=== PATIENT | female | born 1950 | race Caucasian/White ===

== ENCOUNTER 2018-07-04 13:08 | Emergency (ER) | payer MEDICARE ==
[2018-07-04 13:21] VITALS: BP 219/85
--- NOTE | 2018-07-04 13:43 | UC ---
Respiratory Complaint HPI - HPI Summary HPI Summary: 67-year-old female with history of asthma presents with onset of nonproductive cough around 10 AM this morning. Associated with some general malaise and "chest burning" with cough. Reports one week ago she choked on some food which was then followed by a lot of coughing and she is concerned that this may have caused an infection in her lungs. Denies fever, chills, nasal congestion, runny nose, sore throat, chest pain, shortness of breath, wheezing, abdominal pain, nausea, or vomiting. - History of Current Complaint Chief Complaint: UCRespiratory Stated Complaint: URI Time Seen by Provider: 07/04/18 13:14 Hx Obtained From: Patient Pain Intensity: 5 - Allergies/Home Medications Allergies/Adverse Reactions: Allergies Allergy/AdvReac Type Severity Reaction Status Date / Time doxycycline Allergy Intermediate GI Upset Verified 07/04/18 13:34 erythromycin base Allergy Intermediate Eyes Verified 07/04/18 13:34 Itchy/Swollen/Red/Watery fenoprofen Allergy Intermediate Unknown Verified 07/04/18 13:34 Reaction Details lisinopril Allergy Intermediate Coughing Verified 07/04/18 13:34 Sulfa (Sulfonamide Allergy Intermediate Unknown Verified 07/04/18 13:34 Antibiotics) Reaction Details gentamicin Allergy Unknown Verified 07/04/18 13:34 Reaction Details hydromorphone Allergy Itching Verified 07/04/18 13:34 miconazole Allergy Unknown Verified 07/04/18 13:34 Reaction Details polyethylene glycol Allergy Unknown Verified 07/04/18 13:34 Reaction Details prednisone Allergy Coughing Verified 07/04/18 13:34 Home Medications: Home Medications Cholecalciferol TAB* [Vitamin D TAB*] 400 unit PO DAILY 07/04/18 [History Confirmed 07/04/18] Magnesium Oxide [Magnesium] 400 mg PO DAILY WITH MEAL 07/04/18 [History Confirmed 07/04/18] Metformin HCl 500 mg PO DAILY WITH MEAL 07/04/18 [History Confirmed 07/04/18] PMH/Surg Hx/FS Hx/Imm Hx Endocrine History: Diabetes Cardiovascular History: Hypertension Respiratory History: Asthma GI/ History: Gastroesophageal Reflux - Surgical History Surgical History: Yes Surgery Procedure, Year, and Place: CHOLECYSTECTOMY, TOTAL HYSTERECTOMY. BOTH DONE AT [facility] [place]. - Family History Known Family History: Positive: Non-Contributory - Social History Occupation: Retired Lives: With Family Alcohol Use: None Substance Use Type: None Smoking Status (MU): Never Smoked Tobacco - Immunization History Most Recent Influenza Vaccination: 2013 Most Recent Tetanus Shot: remote Most Recent Pneumonia Vaccination: within the last 5 years Review of Systems All Other Systems Reviewed And Are Negative: Yes Constitutional: Negative: Fever, Chills Eyes: Negative: Drainage, Eye Redness ENT: Negative: Sore Throat, Ear Ache, Nasal Discharge, Sinus Congestion, Sinus Pain/Tenderness Respiratory: Positive: Cough. Negative: Shortness Of Breath Cardiovascular: Negative: Palpitations, Chest Pain Gastrointestinal: Negative: Abdominal Pain, Vomiting, Diarrhea, Nausea Genitourinary: Positive: Negative Musculoskeletal: Positive: Negative Neurological: Positive: Negative Is Patient Immunocompromised?: No Physical Exam - Summary Physical Exam Summary: GENERAL APPEARANCE: Alert and cooperative, obese female who appears to be in no acute distress. EYES: Conjunctiva clear. No drainage. EARS: External auditory canals and tympanic membranes clear, hearing grossly intact. NOSE: No nasal discharge. THROAT: Pharynx normal. No tonsilar inflammation, swelling, exudate, or lesions. Uvula midline. Oral cavity normal. Teeth and gingiva in good general condition. NECK: Neck supple, non-tender without lymphadenopathy. CARDIAC: Normal S1 and S2. No S3, S4 or murmurs. Rhythm is regular. There is no peripheral edema, cyanosis or pallor. Extremities are warm and well perfused. Capillary refill is less than 2 seconds. Peripheral pulses intact. LUNGS: Clear to auscultation without rales, rhonchi, wheezing or diminished breath sounds. ABDOMEN: Positive bowel sounds. Soft, nondistended, nontender. No guarding or rebound. No masses or hepatosplenomegally. MUSKULOSKELETAL: ROM intact to all extremities. No joint erythema or tenderness. Normal muscular development. Normal gait. SKIN: Skin normal color, texture and turgor with no lesions or eruptions. Triage Information Reviewed: Yes Vital Signs: Initial Vital Signs Temp 97.9 F 07/04/18 13:12 Pulse 75 07/04/18 13:12 Resp 20 07/04/18 13:12 BP 219/85 07/04/18 13:12 Pulse Ox 95 07/04/18 13:12 Vital Signs Reviewed: Yes Diagnostics - Radiology No standard instances Radiology Interpretation Completed By: Radiologist Summary of Radiographic Findings: Order Information: CHEST PA LAT 2 VWS. Accession Number: [id number]. CPT: 72947. INDICATION: Cough. COMPARISON: Chest x-ray dated August 27, 2015. TECHNIQUE: PA and lateral views of the chest were obtained. FINDINGS: The heart and mediastinum are normal in size and contour. The lungs are grossly clear. There is no evidence of large pleural effusion. Visualized bones are normal for the patient's age. There is no radiographic evidence of free air beneath the diaphragm. IMPRESSION: No radiographic evidence of acute cardiopulmonary disease. Respiratory Course/Dx - Course Course Of Treatment: 67-year-old female with history of asthma presents with onset of nonproductive cough around 10 AM this morning. Associated with some general malaise and "chest burning" with cough. Reports one week ago she choked on some food which was then followed by a lot of coughing and she is concerned that this may have caused an infection in her lungs. Denies fever, chills, nasal congestion, runny nose, sore throat, chest pain, shortness of breath, wheezing, abdominal pain, nausea, or vomiting. Afebrile. Hypertensive otherwise vital signs stable. Her exam was overall unremarkable and the cough was not observed. A two-view chest x-ray was obtained and showed no acute cardiopulmonary pathology. Discussed findings with patient. Her symptoms are likely an acute bronchitis. Recommending conservative treatment including Tessalon Perles 1 cap every 8 hours as needed for cough. She is to follow-up with her primary care provider in 3-5 days if symptoms persist. Anticipatory guidance and warning symptoms reviewed with the patient. Verbalizes understanding and agrees with plan of care. - Differential Dx/Diagnosis Differential Diagnosis/HQI/PQRI: Asthma, Bronchitis, Lower Resp Infection Provider Diagnosis: Acute bronchitis Discharge - Sign-Out/Discharge Documenting (check all that apply): Patient Departure All imaging exams completed and their final reports reviewed: Yes - Discharge Plan Condition: Stable Disposition: HOME Prescriptions: Benzonatate CAP* [Tessalon 100 MG CAP*] 100 mg PO TID PRN #30 cap PRN Reason: Cough Mometasone NASAL (NF) [Nasonex (NF)] 1 spray BOTH NARES DAILY #1 nasal.spr Patient Education Materials: Acute Bronchitis (ED) Referrals: Becca Hall MD [Primary Care Provider] - Additional Instructions: The chest x-ray performed in the clinic today showed no evidence of pneumonia. Your history and exam are consistent with acute bronchitis which is most often caused by a viral infection. Viral infections do not respond to antibiotics and are limited to the treatment of symptoms. Viral infections typically run their course in 7-10 days. Be aware that the cough with bronchitis may persist for 2-3 weeks even if other symptoms have improved. Get plenty of rest. Drink plenty of fluids. Run a cool mist humidifer in your room at night. Take over the counter acetaminophen (Tylenol) or ibuprofen (Advil, Motrin) according to directions as needed for pain or fever. Take Tessalon Perles 1 cap every 8 hours as needed for cough. Follow up with your primary care provider in 3-5 days if symptoms do not improve. Seek immediate medical attention in the emergency room if you have fever greater than 100.5 F despite taking acetaminophen or ibuprofen, have chest pain , difficulty breathing, or have any worsening of symptoms. - Billing Disposition and Condition Condition: STABLE Disposition: Home
[2018-07-04] MEDS ORDERED: Lidocaine 1%* 5 ML VIAL INJ ONE (13:45)
== END 2018-07-04 14:12 | disposition home or self-care (01) ==
LOC: UCEAST 13:08
DX: J20.9 Acute bronchitis, unspecified (principal); E11.9 Type 2 diabetes mellitus without complications; Z79.84 Long term (current) use of oral hypoglycemic drugs; I10 Essential (primary) hypertension; J45.909 Unspecified asthma, uncomplicated; K21.9 Gastro-esophageal reflux disease without esophagitis; Z88.6 Allergy status to analgesic agent; Z88.1 Allergy status to other antibiotic agents; Z88.5 Allergy status to narcotic agent; Z88.2 Allergy status to sulfonamides; Z88.8 Allergy status to other drugs, medicaments and biological substances
CPT/HCPCS: 71046; 99212; G0463

== ENCOUNTER 2020-04-19 12:40 | Inpatient (IN) ==
[2020-04-19] MEDS ORDERED: Piperacillin/Tazobac ADVAN 3.375 GM in NS 0.9% 100 ml BAG 100 ML IVPB ONE (13:24)
[2020-04-19] MEDS ORDERED: NS 0.9% 1000 ml BAG 1,000 ML IV.FLUID IV ONE (13:24)
[2020-04-19] MEDS ORDERED: Vancomycin 1,500 MG in NS 0.9% 250 ml 250 ML IVPB ONE (14:00)
[2020-04-19 14:38] LABS: Albumin 3.2 g/dL (3.2-5.2); Albumin/Globulin Ratio 0.8 (1-3); C Reactive Protein 177.82 mg/L (<8.01); Calcium 8.9 mg/dL (8.6-10.3); EGFR African American 68.7 (>60); EGFR Non-African American 56.8 (>60); Globulin 3.8 g/dL (2-4); Potassium 3.9 mmol/L (3.5-5.0); Troponin I 0.01 ng/mL (<0.03)
[2020-04-19 15:15] LABS: Influenza A Molecular Negative (Negative); Influenza B Molecular Negative (Negative)
[2020-04-19 15:17] LABS: Hematocrit 32 % (35-47); Mean Corpuscular HGB Conc 34 g/dL (31-36); Mean Corpuscular Hemoglobin 29 pg (27-31); Mean Corpuscular Volume 84 fL (80-97); Mean Platelet Volume 8.2 fL (7.4-10.4); Platelet Count 181 10^3/uL (150-450); Red Blood Count 3.82 10^6 /uL (3.70-4.87); Red Cell Distribution Width 14 % (10-15); White Blood Count 0.3 10^3/uL (3.5-10.8)
[2020-04-19] MEDS ORDERED: Mometasone NASAL (NF) SPRAY BOTH NARES PRN (16:13)
[2020-04-19] MEDS ORDERED: Levalbuterol HFA INHALER MDI INH PRN (16:13)
[2020-04-19 17:03] LABS: ABS Neutrophils 0.2 10^3/ul (1.5-7.7)
[2020-04-19] MEDS: Levalbuterol 0.63MG/3ML NEB UNIT OF USE INH SCH (17:43)
[2020-04-19] MEDS ORDERED: Fluticasone NASAL SPRAY 50MCG 16 gm SPRAY BTL BOTH NARES PRN (17:59)
[2020-04-19 18:40] LABS: Activated Partial Thrombo Time 24.7 seconds (26.0-38.0); INR 1.37 (0.82-1.09)
[2020-04-19] MEDS: metroNIDAZOLE IV 500 MG/100ML 500 MG/100 ML BAG IVPB SCH (19:32)
[2020-04-19] MEDS: Ondansetron 4 mg VIAL 2 MG/ML 2 ml VIAL IV PRN (19:32)
[2020-04-19] MEDS: Morphine 2 MG/ML SYRINGE IV PRN (19:34)
[2020-04-19] MEDS: NS 0.9% 1000 ml BAG 1,000 ML IV SCH (19:45)
[2020-04-19] MEDS: Cefepime 2 GM in Dextrose 2 GM/50 ML BAG IV SCH (22:50)
[2020-04-19] MEDS: Enoxaparin 40 MG/0.4 ML SYR SUBCUT SCH (22:51)
[2020-04-19] MEDS: Nystatin TOP POWDER 15 GM BTL TOPICAL SCH (22:54)
[2020-04-20] MEDS: Morphine 2 MG/ML SYRINGE IV PRN ×4 (00:15→19:36)
[2020-04-20] MEDS: Levalbuterol 0.63MG/3ML NEB UNIT OF USE INH SCH ×3 (00:16→16:59)
[2020-04-20] MEDS: Ondansetron 4 mg VIAL 2 MG/ML 2 ml VIAL IV PRN ×3 (00:17→20:52)
[2020-04-20] MEDS: metroNIDAZOLE IV 500 MG/100ML 500 MG/100 ML BAG IVPB SCH ×3 (03:56→16:18)
[2020-04-20] MEDS: Cefepime 2 GM in Dextrose 2 GM/50 ML BAG IV SCH ×3 (05:17→19:50)
[2020-04-20 06:36] LABS: Urine Appearance Cloudy; Urine Bilirubin Negative (Negative); Urine Blood 1+ (Negative); Urine Color Amber; Urine Glucose Negative (Negative); Urine Ketones Negative (Negative); Urine Nitrite Negative (Negative); Urine Protein 1+(30 mg/dL) (Negative); Urine Specific Gravity 1.019 (1.010-1.030); Urine Urobilinogen Negative (Negative)
[2020-04-20 06:44] LABS: Urine Bacteria Absent (Absent); Urine Red Blood Cell 1+(3-5/hpf) (Absent); Urine Squamous Epithelial Cell Present (Absent); Urine White Blood Cell Trace(0-5/hpf) (Absent)
[2020-04-20] MEDS: Cholecalciferol (VIT D3) 1,000 unit TAB PO SCH (07:42)
[2020-04-20] MEDS: Nystatin TOP POWDER 15 GM BTL TOPICAL SCH ×3 (07:50→21:02)
[2020-04-20 08:32] LABS: Hematocrit 29 % (35-47); Hemoglobin 9.5 g/dL (12.0-16.0); Mean Corpuscular HGB Conc 33 g/dL (31-36); Mean Corpuscular Hemoglobin 28 pg (27-31); Mean Corpuscular Volume 85 fL (80-97); Red Blood Count 3.37 10^6 /uL (3.70-4.87); Red Cell Distribution Width 14 % (10-15); White Blood Count 0.2 10^3/uL (3.5-10.8)
[2020-04-20 08:47] LABS: Albumin 2.6 g/dL (3.2-5.2); Albumin/Globulin Ratio 0.8 (1-3); BUN/Creatinine Ratio 23.7 (8-20); Calcium 7.9 mg/dL (8.6-10.3); EGFR African American 68.7 (>60); EGFR Non-African American 56.8 (>60); Globulin 3.2 g/dL (2-4); Total Bilirubin 1.4 mg/dL (0.2-1.0); Total Protein 5.8 g/dL (6.4-8.9)
[2020-04-20 09:46] LABS: ABS Lymphocytes 0.1 10^3/ul (1.0-4.8); ABS Neutrophils 0.1 10^3/ul (1.5-7.7); Eosinophil % 5.5 %; Lymphocyte % 35.4 %; Mean Platelet Volume 7.8 fL (7.4-10.4); Platelet Count 84 10^3/uL (150-450)
[2020-04-20] MEDS: NS 0.9% 1000 ml BAG 1,000 ML IV SCH (11:50)
[2020-04-20] MEDS: Enoxaparin 40 MG/0.4 ML SYR SUBCUT SCH (20:52)
[2020-04-20] MEDS: Calcium Carb (TUMS) 500 mg CHEW TAB PO PRN (20:52)
[2020-04-21] MEDS: Levalbuterol 0.63MG/3ML NEB UNIT OF USE INH SCH ×3 (00:56→16:13)
[2020-04-21] MEDS: metroNIDAZOLE IV 500 MG/100ML 500 MG/100 ML BAG IVPB SCH ×4 (01:51→19:37)
[2020-04-21] MEDS: Calcium Carb (TUMS) 500 mg CHEW TAB PO PRN ×2 (04:01→08:13)
[2020-04-21] MEDS: Morphine 2 MG/ML SYRINGE IV PRN ×3 (04:09→16:00)
[2020-04-21] MEDS: Cefepime 2 GM in Dextrose 2 GM/50 ML BAG IV SCH ×3 (05:00→21:13)
[2020-04-21 07:38] LABS: Albumin 2.5 g/dL (3.2-5.2); Albumin/Globulin Ratio 0.8 (1-3); BUN/Creatinine Ratio 23.4 (8-20); Calcium 8.8 mg/dL (8.6-10.3); EGFR African American 71.2 (>60); EGFR Non-African American 58.9 (>60); Globulin 3.3 g/dL (2-4); Total Bilirubin 1.6 mg/dL (0.2-1.0); Total Protein 5.8 g/dL (6.4-8.9)
[2020-04-21 07:48] LABS: Hematocrit 29 % (35-47); Hemoglobin 9.6 g/dL (12.0-16.0); Mean Corpuscular HGB Conc 33 g/dL (31-36); Mean Corpuscular Hemoglobin 28 pg (27-31); Mean Corpuscular Volume 85 fL (80-97); Mean Platelet Volume 8.2 fL (7.4-10.4); Platelet Count 47 10^3/uL (150-450); Red Blood Count 3.39 10^6 /uL (3.70-4.87); Red Cell Distribution Width 14 % (10-15); White Blood Count 0.2 10^3/uL (3.5-10.8)
[2020-04-21] MEDS: Cholecalciferol (VIT D3) 1,000 unit TAB PO SCH (08:14)
[2020-04-21] MEDS: Nystatin TOP POWDER 15 GM BTL TOPICAL SCH ×3 (08:18→21:14)
[2020-04-21 08:44] LABS: ABS Lymphocytes 0.1 10^3/ul (1.0-4.8); Eosinophil % 3.3 %; Lymphocyte % 64.7 %; Nucleated Red Blood Cells % 2.3
[2020-04-22] MEDS: Levalbuterol 0.63MG/3ML NEB UNIT OF USE INH SCH ×3 (01:04→16:31)
[2020-04-22] MEDS: metroNIDAZOLE IV 500 MG/100ML 500 MG/100 ML BAG IVPB SCH ×3 (01:38→17:31)
[2020-04-22] MEDS: NS 0.9% 1000 ml BAG 1,000 ML IV SCH ×2 (01:38→23:49)
[2020-04-22] MEDS: Morphine 2 MG/ML SYRINGE IV PRN ×4 (02:15→16:27)
[2020-04-22] MEDS: Cefepime 2 GM in Dextrose 2 GM/50 ML BAG IV SCH ×3 (03:47→20:04)
[2020-04-22 05:30] LABS: Hematocrit 26 % (35-47); Hemoglobin 8.8 g/dL (12.0-16.0); Mean Corpuscular HGB Conc 33 g/dL (31-36); Mean Corpuscular Hemoglobin 28 pg (27-31); Mean Corpuscular Volume 84 fL (80-97); Platelet Count 33 10^3/uL (150-450); Red Blood Count 3.14 10^6 /uL (3.70-4.87); Red Cell Distribution Width 14 % (10-15); White Blood Count 0.1 10^3/uL (3.5-10.8)
[2020-04-22 05:39] LABS: Albumin 2.3 g/dL (3.2-5.2); Albumin/Globulin Ratio 0.7 (1-3); BUN/Creatinine Ratio 24.3 (8-20); Calcium 9.4 mg/dL (8.6-10.3); EGFR African American 61.3 (>60); EGFR Non-African American 50.7 (>60); Globulin 3.1 g/dL (2-4); Potassium 3.6 mmol/L (3.5-5.0); Total Bilirubin 1.6 mg/dL (0.2-1.0); Total Protein 5.4 g/dL (6.4-8.9)
[2020-04-22 05:50] LABS: ABS Lymphocytes 0.1 10^3/ul (1.0-4.8); Eosinophil % 2.2 %; Lymphocyte % 59.5 %; Nucleated Red Blood Cells % 5.9
[2020-04-22] MEDS: Cholecalciferol (VIT D3) 1,000 unit TAB PO SCH ×2 (11:15→14:33)
[2020-04-22] MEDS: Nystatin TOP POWDER 15 GM BTL TOPICAL SCH ×3 (11:16→22:37)
[2020-04-22] MEDS ORDERED: Iodixanol (CONTRAST) 320 MG/ML 100 ML SDV IV ONE (11:58)
[2020-04-22] MEDS ORDERED: Lorazepam PYXIS KEY ONE (14:02)
[2020-04-22] MEDS ORDERED: LORazepam 2 mg VIAL 1 ml ONE (14:03)
[2020-04-22] MEDS ORDERED: LORazepam 2 mg VIAL 1 ml IV PUSH PRN (14:05)
[2020-04-22] MEDS ORDERED: Lorazepam PYXIS KEY PRN (14:05)
[2020-04-22] MEDS ORDERED: LORazepam 2 mg VIAL 1 ml IV PUSH ONE (14:05)
[2020-04-23] MEDS: Levalbuterol 0.63MG/3ML NEB UNIT OF USE INH SCH (00:12)
[2020-04-23] MEDS: metroNIDAZOLE IV 500 MG/100ML 500 MG/100 ML BAG IVPB SCH ×3 (01:43→17:30)
[2020-04-23] MEDS: Cefepime 2 GM in Dextrose 2 GM/50 ML BAG IV SCH ×3 (04:38→19:47)
[2020-04-23 05:20] LABS: Albumin 2.1 g/dL (3.2-5.2); Calcium 9.1 mg/dL (8.6-10.3); Potassium 3.8 mmol/L (3.5-5.0); Total Bilirubin 1.6 mg/dL (0.2-1.0)
[2020-04-23 05:25] LABS: Albumin/Globulin Ratio 0.9 (1-3); BUN/Creatinine Ratio 32.6 (8-20); EGFR African American 70.4 (>60); EGFR Non-African American 58.2 (>60); Globulin 2.3 g/dL (2-4); Total Protein 4.4 g/dL (6.4-8.9)
[2020-04-23 05:26] LABS: Hematocrit 26 % (35-47); Hemoglobin 8.4 g/dL (12.0-16.0); Mean Corpuscular HGB Conc 32 g/dL (31-36); Mean Corpuscular Hemoglobin 28 pg (27-31); Mean Corpuscular Volume 86 fL (80-97); Mean Platelet Volume 8.4 fL (7.4-10.4); Platelet Count 19 10^3/uL (150-450); Red Blood Count 3.03 10^6 /uL (3.70-4.87); Red Cell Distribution Width 15 % (10-15); White Blood Count 0.2 10^3/uL (3.5-10.8)
[2020-04-23 07:43] LABS: ABS Lymphocytes 0.1 10^3/ul (1.0-4.8); Eosinophil % 2.4 %; Lymphocyte % 73.3 %
[2020-04-23] MEDS ORDERED: Levalbuterol 0.63MG/3ML NEB UNIT OF USE INH PRN (08:34)
[2020-04-23] MEDS: Nystatin TOP POWDER 15 GM BTL TOPICAL SCH ×3 (09:01→21:38)
[2020-04-23] MEDS: Cholecalciferol (VIT D3) 1,000 unit TAB PO SCH (09:03)
[2020-04-23] MEDS: NS 0.9% 1000 ml BAG 1,000 ML IV SCH (14:44)
[2020-04-23] MEDS: Morphine 2 MG/ML SYRINGE IV PRN ×2 (18:01→20:35)
[2020-04-23] MEDS ORDERED: Haloperidol LIQ 10 MG/5 ML UDC PO PRN (20:25)
[2020-04-24] MEDS: metroNIDAZOLE IV 500 MG/100ML 500 MG/100 ML BAG IVPB SCH ×3 (02:26→17:15)
[2020-04-24] MEDS: Cefepime 2 GM in Dextrose 2 GM/50 ML BAG IV SCH ×3 (03:36→20:11)
[2020-04-24] MEDS: NS 0.9% 1000 ml BAG 1,000 ML IV SCH ×3 (05:28→21:10)
[2020-04-24 05:29] LABS: Hematocrit 28 % (35-47); Hemoglobin 9.2 g/dL (12.0-16.0); Mean Corpuscular HGB Conc 33 g/dL (31-36); Mean Corpuscular Hemoglobin 28 pg (27-31); Mean Corpuscular Volume 84 fL (80-97); Mean Platelet Volume 8.8 fL (7.4-10.4); Red Blood Count 3.29 10^6 /uL (3.70-4.87); Red Cell Distribution Width 15 % (10-15); White Blood Count 0.3 10^3/uL (3.5-10.8)
[2020-04-24 05:30] LABS: Platelet Count 13 10^3/uL (150-450)
[2020-04-24 05:41] LABS: Albumin 2.4 g/dL (3.2-5.2); Albumin/Globulin Ratio 0.8 (1-3); BUN/Creatinine Ratio 37.3 (8-20); Calcium 10.4 mg/dL (8.6-10.3); EGFR African American 82.2 (>60); Globulin 3.2 g/dL (2-4); Potassium 3.3 mmol/L (3.5-5.0); Total Protein 5.6 g/dL (6.4-8.9)
[2020-04-24 06:05] LABS: ABS Lymphocytes 0.2 10^3/ul (1.0-4.8); Lymphocyte % 76.7 %
[2020-04-24] MEDS: Nystatin TOP POWDER 15 GM BTL TOPICAL SCH ×3 (07:46→21:15)
[2020-04-24] MEDS: Cholecalciferol (VIT D3) 1,000 unit TAB PO SCH (07:46)
[2020-04-24] MEDS: Morphine 2 MG/ML SYRINGE IV PRN ×3 (09:18→23:57)
[2020-04-24] MEDS: Metoprolol Tartrate 5 mg VIAL 5 ml VIAL (1 mg/ml) IV SCH ×3 (10:55→23:51)
[2020-04-24 11:04] LABS: Urine Appearance Cloudy; Urine Bilirubin Negative (Negative); Urine Blood 3+ (Negative); Urine Color Amber; Urine Glucose Negative (Negative); Urine Ketones Trace (Negative); Urine Nitrite Negative (Negative); Urine Protein 1+(30 mg/dL) (Negative); Urine Specific Gravity 1.013 (1.010-1.030); Urine Urobilinogen Negative (Negative)
[2020-04-24 11:09] LABS: Urine Bacteria Absent (Absent); Urine Red Blood Cell 3+(>10/hpf) (Absent); Urine White Blood Cell Trace(0-5/hpf) (Absent)
[2020-04-24] MEDS ORDERED: Zoledronic Acid 4 MG in NS 0.9% 100 ml BAG 100 ML IVPB ONE (11:30)
[2020-04-24] MEDS: Furosemide 20 mg/2 ml IV VIAL IV SCH (21:15)
[2020-04-25] MEDS: metroNIDAZOLE IV 500 MG/100ML 500 MG/100 ML BAG IVPB SCH ×3 (02:00→17:29)
[2020-04-25] MEDS: NS 0.9% 1000 ml BAG 1,000 ML IV SCH (04:02)
[2020-04-25] MEDS: Cefepime 2 GM in Dextrose 2 GM/50 ML BAG IV SCH ×3 (04:07→19:47)
[2020-04-25] MEDS: Morphine 2 MG/ML SYRINGE IV PRN (04:10)
[2020-04-25] MEDS: Metoprolol Tartrate 5 mg VIAL 5 ml VIAL (1 mg/ml) IV SCH ×4 (05:17→23:29)
[2020-04-25] MEDS: Furosemide 20 mg/2 ml IV VIAL IV SCH ×2 (07:03→21:06)
[2020-04-25] MEDS: Cholecalciferol (VIT D3) 1,000 unit TAB PO SCH (07:04)
[2020-04-25] MEDS: Nystatin TOP POWDER 15 GM BTL TOPICAL SCH ×3 (07:05→23:29)
[2020-04-25 07:45] LABS: Albumin 2.4 g/dL (3.2-5.2); Albumin/Globulin Ratio 0.8 (1-3); Calcium 10.2 mg/dL (8.6-10.3); EGFR African American 74.9 (>60); EGFR Non-African American 61.9 (>60); Globulin 3.1 g/dL (2-4); Magnesium 1.4 mg/dL (1.9-2.7); Total Bilirubin 1.7 mg/dL (0.2-1.0); Total Protein 5.5 g/dL (6.4-8.9)
[2020-04-25 07:46] LABS: Hematocrit 28 % (35-47); Hemoglobin 9.2 g/dL (12.0-16.0); Mean Corpuscular HGB Conc 33 g/dL (31-36); Mean Corpuscular Hemoglobin 28 pg (27-31); Mean Corpuscular Volume 84 fL (80-97); Mean Platelet Volume 8.7 fL (7.4-10.4); Platelet Count 8 10^3/uL (150-450); Red Blood Count 3.31 10^6 /uL (3.70-4.87); Red Cell Distribution Width 15 % (10-15); White Blood Count 0.4 10^3/uL (3.5-10.8)
[2020-04-25 08:42] LABS: ABS Lymphocytes 0.2 10^3/ul (1.0-4.8); ABS Monocytes 0.1 10^3/ul (0-0.8); ABS Neutrophils 0.1 10^3/ul (1.5-7.7); Eosinophil % 2.5 %; Lymphocyte % 42.5 %; Nucleated Red Blood Cells % 0.5
[2020-04-25] MEDS ORDERED: Magnesium Sulf 4 GM/100 ML IV 4,000 MG/100 ML BAG IVPB ONE (08:59)
[2020-04-25] MEDS: NS 0.9% w/ 40 Meq KCL 1000 ML 1,000 ML IV SCH ×2 (09:46→19:47)
[2020-04-26] MEDS: Morphine 2 MG/ML SYRINGE IV PRN ×2 (00:51→03:11)
[2020-04-26] MEDS: metroNIDAZOLE IV 500 MG/100ML 500 MG/100 ML BAG IVPB SCH ×3 (01:00→17:54)
[2020-04-26 01:42] LABS: Mean Platelet Volume 9.1 fL (7.4-10.4); Platelet Count 53 10^3/uL (150-450)
[2020-04-26] MEDS: Cefepime 2 GM in Dextrose 2 GM/50 ML BAG IV SCH ×3 (03:58→20:09)
[2020-04-26] MEDS: Metoprolol Tartrate 5 mg VIAL 5 ml VIAL (1 mg/ml) IV SCH ×4 (04:53→22:55)
[2020-04-26] MEDS: NS 0.9% w/ 40 Meq KCL 1000 ML 1,000 ML IV SCH ×2 (08:38→20:09)
[2020-04-26 09:07] LABS: Hematocrit 26 % (35-47); Hemoglobin 8.6 g/dL (12.0-16.0); Mean Corpuscular HGB Conc 33 g/dL (31-36); Mean Corpuscular Hemoglobin 28 pg (27-31); Mean Corpuscular Volume 82 fL (80-97); Red Blood Count 3.13 10^6 /uL (3.70-4.87); Red Cell Distribution Width 15 % (10-15); White Blood Count 1.3 10^3/uL (3.5-10.8)
[2020-04-26 09:37] LABS: Albumin 2.3 g/dL (3.2-5.2); Albumin/Globulin Ratio 0.8 (1-3); BUN/Creatinine Ratio 41.1 (8-20); Calcium 9.4 mg/dL (8.6-10.3); EGFR African American 58.2 (>60); EGFR Non-African American 48.1 (>60); Magnesium 2.2 mg/dL (1.9-2.7); Potassium 3.2 mmol/L (3.5-5.0); Total Bilirubin 1.4 mg/dL (0.2-1.0); Total Protein 5.3 g/dL (6.4-8.9)
[2020-04-26 09:43] LABS: ABS Lymphocytes 0.3 10^3/ul (1.0-4.8); ABS Monocytes 0.2 10^3/ul (0-0.8); ABS Neutrophils 0.8 10^3/ul (1.5-7.7); Eosinophil % 0.9 %; Lymphocyte % 19.7 %; Mean Platelet Volume 9.3 fL (7.4-10.4); Nucleated Red Blood Cells % 0.2; Platelet Count 19 10^3/uL (150-450)
[2020-04-26] MEDS: Furosemide 20 mg/2 ml IV VIAL IV SCH (10:19)
[2020-04-26] MEDS: Cholecalciferol (VIT D3) 1,000 unit TAB PO SCH (10:23)
[2020-04-26] MEDS: Nystatin TOP POWDER 15 GM BTL TOPICAL SCH ×3 (10:24→20:09)
[2020-04-27] MEDS: metroNIDAZOLE IV 500 MG/100ML 500 MG/100 ML BAG IVPB SCH ×3 (01:14→17:06)
[2020-04-27] MEDS: Cefepime 2 GM in Dextrose 2 GM/50 ML BAG IV SCH (03:31)
[2020-04-27] MEDS: NS 0.9% w/ 40 Meq KCL 1000 ML 1,000 ML IV SCH (04:55)
[2020-04-27] MEDS: Metoprolol Tartrate 5 mg VIAL 5 ml VIAL (1 mg/ml) IV SCH ×3 (04:55→17:06)
[2020-04-27 06:30] LABS: Hematocrit 29 % (35-47); Hemoglobin 9.7 g/dL (12.0-16.0); Mean Corpuscular HGB Conc 34 g/dL (31-36); Mean Corpuscular Hemoglobin 28 pg (27-31); Mean Corpuscular Volume 84 fL (80-97); Red Blood Count 3.45 10^6 /uL (3.70-4.87); Red Cell Distribution Width 15 % (10-15)
[2020-04-27 06:47] LABS: Albumin 2.4 g/dL (3.2-5.2); Albumin/Globulin Ratio 0.8 (1-3); BUN/Creatinine Ratio 44.2 (8-20); Calcium 9.1 mg/dL (8.6-10.3); EGFR African American 57.6 (>60); EGFR Non-African American 47.6 (>60); Globulin 3.2 g/dL (2-4); Potassium 3.5 mmol/L (3.5-5.0); Total Bilirubin 1.4 mg/dL (0.2-1.0); Total Protein 5.6 g/dL (6.4-8.9)
[2020-04-27 06:55] LABS: Mean Platelet Volume 9.8 fL (7.4-10.4); Platelet Count 15 10^3/uL (150-450)
[2020-04-27] MEDS ORDERED: D5W 1/2 NS 1000 ml BAG 1,000 ML IV SCH ×2 (10:00→11:07)
[2020-04-27] MEDS: Nystatin TOP POWDER 15 GM BTL TOPICAL SCH ×3 (10:18→19:58)
[2020-04-27] MEDS: Morphine 2 MG/ML SYRINGE IV PRN (14:57)
[2020-04-27 15:44] LABS: Albumin 2.3 g/dL (3.2-5.2); Albumin/Globulin Ratio 0.7 (1-3); EGFR African American 63.4 (>60); EGFR Non-African American 52.4 (>60); Globulin 3.1 g/dL (2-4); Potassium 3.7 mmol/L (3.5-5.0); Total Bilirubin 1.3 mg/dL (0.2-1.0); Total Protein 5.4 g/dL (6.4-8.9)
[2020-04-28] MEDS: Metoprolol Tartrate 5 mg VIAL 5 ml VIAL (1 mg/ml) IV SCH ×5 (00:09→22:02)
[2020-04-28] MEDS: metroNIDAZOLE IV 500 MG/100ML 500 MG/100 ML BAG IVPB SCH ×4 (01:15→18:25)
[2020-04-28] MEDS: Morphine 2 MG/ML SYRINGE IV PRN ×2 (01:18→13:49)
[2020-04-28 06:34] LABS: Hematocrit 28 % (35-47); Hemoglobin 9.1 g/dL (12.0-16.0); Mean Corpuscular HGB Conc 33 g/dL (31-36); Mean Corpuscular Hemoglobin 28 pg (27-31); Mean Corpuscular Volume 84 fL (80-97); Mean Platelet Volume 10.3 fL (7.4-10.4); Platelet Count 9 10^3/uL (150-450); Red Cell Distribution Width 15 % (10-15)
[2020-04-28 06:38] LABS: Albumin 2.2 g/dL (3.2-5.2); Albumin/Globulin Ratio 0.8 (1-3); BUN/Creatinine Ratio 53.5 (8-20); Calcium 8.6 mg/dL (8.6-10.3); EGFR African American 65.6 (>60); EGFR Non-African American 54.2 (>60); Globulin 2.8 g/dL (2-4); Potassium 3.3 mmol/L (3.5-5.0)
[2020-04-28 07:52] LABS: ABS Lymphocytes 0.7 10^3/ul (1.0-4.8); ABS Monocytes 0.7 10^3/ul (0-0.8); ABS Neutrophils 2.6 10^3/ul (1.5-7.7); Eosinophil % 0.9 %; Lymphocyte % 17.7 %; Nucleated Red Blood Cells % 0.1
[2020-04-28] MEDS: Nystatin TOP POWDER 15 GM BTL TOPICAL SCH ×3 (09:00→19:41)
[2020-04-28 12:57] LABS: Magnesium 1.9 mg/dL (1.9-2.7)
[2020-04-28] MEDS ORDERED: D5W 1/4 NS 20 Meq KCL 1000 ml 1,000 ML IV SCH (13:00)
[2020-04-28] MEDS ORDERED: Dextrose 50% Syringe 50 ml 25 GM/50 ML SYRINGE IV PUSH PRN (13:08)
[2020-04-28] MEDS: D5W 1/4 NS 20 Meq KCL 1000 ml 1,000 ML IV SCH (15:20)
[2020-04-28 16:44] LABS: Mean Platelet Volume 8.5 fL (7.4-10.4); Platelet Count 31 10^3/uL (150-450)
[2020-04-29] MEDS: metroNIDAZOLE IV 500 MG/100ML 500 MG/100 ML BAG IVPB SCH ×3 (01:23→18:38)
[2020-04-29] MEDS: D5W 1/4 NS 20 Meq KCL 1000 ml 1,000 ML IV SCH ×2 (03:36→15:29)
[2020-04-29] MEDS: Metoprolol Tartrate 5 mg VIAL 5 ml VIAL (1 mg/ml) IV SCH ×3 (05:03→18:38)
[2020-04-29 05:23] LABS: INR 1.54 (0.82-1.09)
[2020-04-29 05:26] LABS: Hematocrit 27 % (35-47); Hemoglobin 8.8 g/dL (12.0-16.0); Mean Corpuscular HGB Conc 33 g/dL (31-36); Mean Corpuscular Hemoglobin 27 pg (27-31); Mean Corpuscular Volume 84 fL (80-97); Mean Platelet Volume 10.2 fL (7.4-10.4); Platelet Count 23 10^3/uL (150-450); Red Blood Count 3.22 10^6 /uL (3.70-4.87); Red Cell Distribution Width 15 % (10-15); White Blood Count 2.6 10^3/uL (3.5-10.8)
[2020-04-29 05:32] LABS: BUN/Creatinine Ratio 47.9 (8-20); EGFR African American 69.5 (>60); EGFR Non-African American 57.5 (>60); Potassium 3.2 mmol/L (3.5-5.0)
[2020-04-29 05:55] LABS: ABS Lymphocytes 0.7 10^3/ul (1.0-4.8); ABS Monocytes 0.5 10^3/ul (0-0.8); ABS Neutrophils 1.3 10^3/ul (1.5-7.7); Eosinophil % 1.9 %; Lymphocyte % 26.1 %; Nucleated Red Blood Cells % 0.3; Polychromasia 1+
[2020-04-29] MEDS: Nystatin TOP POWDER 15 GM BTL TOPICAL SCH ×3 (10:05→19:51)
[2020-04-29] MEDS ORDERED: Potassium Chloride LIQUID 20 MEQ/15 ML LIQUID PO ONE (13:42)
[2020-04-29] MEDS ORDERED: Potassium Chlor 20 meq TAB.ER PO ONE (18:00)
[2020-04-30] MEDS: Metoprolol Tartrate 5 mg VIAL 5 ml VIAL (1 mg/ml) IV SCH ×5 (00:43→23:50)
[2020-04-30] MEDS: Morphine 2 MG/ML SYRINGE IV PRN ×2 (00:48→23:51)
[2020-04-30] MEDS: Ondansetron 4 mg VIAL 2 MG/ML 2 ml VIAL IV PRN ×2 (00:48→23:51)
[2020-04-30] MEDS: D5W 1/4 NS 20 Meq KCL 1000 ml 1,000 ML IV SCH ×2 (02:09→19:55)
[2020-04-30] MEDS: metroNIDAZOLE IV 500 MG/100ML 500 MG/100 ML BAG IVPB SCH ×3 (02:09→17:40)
[2020-04-30 07:53] LABS: Hematocrit 23 % (35-47); Mean Corpuscular HGB Conc 34 g/dL (31-36); Mean Corpuscular Hemoglobin 29 pg (27-31); Mean Corpuscular Volume 84 fL (80-97); Mean Platelet Volume 10.3 fL (7.4-10.4); Platelet Count 29 10^3/uL (150-450); Red Blood Count 2.77 10^6 /uL (3.70-4.87); Red Cell Distribution Width 15 % (10-15); White Blood Count 2.2 10^3/uL (3.5-10.8)
[2020-04-30 08:06] LABS: BUN/Creatinine Ratio 39.8 (8-20); Calcium 7.5 mg/dL (8.6-10.3); EGFR African American 76.9 (>60); EGFR Non-African American 63.5 (>60); Potassium 3.7 mmol/L (3.5-5.0)
[2020-04-30 08:41] LABS: ABS Lymphocytes 0.7 10^3/ul (1.0-4.8); ABS Monocytes 0.4 10^3/ul (0-0.8); ABS Neutrophils 1.1 10^3/ul (1.5-7.7); Eosinophil % 1.7 %; Lymphocyte % 30.7 %; Nucleated Red Blood Cells % 0.1
[2020-04-30] MEDS: Nystatin TOP POWDER 15 GM BTL TOPICAL SCH ×3 (09:35→19:55)
[2020-04-30] MEDS ORDERED: Buffered Lidocaine 1% SYRIN 1 ml INTRADERM ONE (11:44)
[2020-05-01] MEDS: Metoprolol Tartrate 5 mg VIAL 5 ml VIAL (1 mg/ml) IV SCH ×4 (06:02→23:43)
[2020-05-01] MEDS: D5W 1/4 NS 20 Meq KCL 1000 ml 1,000 ML IV SCH (06:42)
[2020-05-01 07:03] LABS: Albumin 2.1 g/dL (3.2-5.2); Albumin/Globulin Ratio 0.7 (1-3); BUN/Creatinine Ratio 31.6 (8-20); Calcium 7.2 mg/dL (8.6-10.3); EGFR African American 87.1 (>60); EGFR Non-African American 71.9 (>60); Potassium 3.4 mmol/L (3.5-5.0); Total Bilirubin 0.8 mg/dL (0.2-1.0); Total Protein 5.1 g/dL (6.4-8.9)
[2020-05-01 07:07] LABS: Hematocrit 23 % (35-47); Hemoglobin 7.5 g/dL (12.0-16.0); Mean Corpuscular HGB Conc 33 g/dL (31-36); Mean Corpuscular Hemoglobin 28 pg (27-31); Mean Corpuscular Volume 84 fL (80-97); Mean Platelet Volume 10.3 fL (7.4-10.4); Platelet Count 49 10^3/uL (150-450); Red Blood Count 2.67 10^6 /uL (3.70-4.87); Red Cell Distribution Width 15 % (10-15); White Blood Count 2.5 10^3/uL (3.5-10.8)
[2020-05-01 07:35] LABS: ABS Lymphocytes 0.6 10^3/ul (1.0-4.8); ABS Monocytes 0.5 10^3/ul (0-0.8); ABS Neutrophils 1.3 10^3/ul (1.5-7.7); Eosinophil % 1.6 %; Lymphocyte % 25.6 %; Nucleated Red Blood Cells % 0.1
[2020-05-01 09:05] LABS: Magnesium 1.5 mg/dL (1.9-2.7)
[2020-05-01] MEDS ORDERED: Magnesium Sulf 4 GM/100 ML IV 4,000 MG/100 ML BAG IVPB ONE (10:08)
[2020-05-01] MEDS: Nystatin TOP POWDER 15 GM BTL TOPICAL SCH ×3 (10:08→20:02)
[2020-05-02] MEDS: Ondansetron 4 mg VIAL 2 MG/ML 2 ml VIAL IV PRN ×3 (02:42→17:44)
[2020-05-02] MEDS: Metoprolol Tartrate 5 mg VIAL 5 ml VIAL (1 mg/ml) IV SCH ×4 (05:30→22:30)
[2020-05-02 05:42] LABS: Hematocrit 25 % (35-47); Hemoglobin 8.7 g/dL (12.0-16.0); Mean Corpuscular HGB Conc 34 g/dL (31-36); Mean Corpuscular Hemoglobin 28 pg (27-31); Mean Corpuscular Volume 82 fL (80-97); Mean Platelet Volume 9.5 fL (7.4-10.4); Platelet Count 89 10^3/uL (150-450); Red Blood Count 3.08 10^6 /uL (3.70-4.87); Red Cell Distribution Width 15 % (10-15); White Blood Count 2.6 10^3/uL (3.5-10.8)
[2020-05-02 06:00] LABS: BUN/Creatinine Ratio 27.7 (8-20); Calcium 7.4 mg/dL (8.6-10.3); EGFR Non-African American 90.1 (>60); Potassium 3.1 mmol/L (3.5-5.0)
[2020-05-02 07:27] LABS: ABS Lymphocytes 0.6 10^3/ul (1.0-4.8); ABS Monocytes 0.6 10^3/ul (0-0.8); ABS Neutrophils 1.3 10^3/ul (1.5-7.7); Eosinophil % 1.7 %; Lymphocyte % 24.4 %
[2020-05-02] MEDS: Nystatin TOP POWDER 15 GM BTL TOPICAL SCH ×3 (09:12→21:44)
[2020-05-02] MEDS: Morphine 2 MG/ML SYRINGE IV PRN (17:45)
[2020-05-02] MEDS ORDERED: Ondansetron 4 mg VIAL 2 MG/ML 2 ml VIAL IV ONE (18:00)
[2020-05-03] MEDS: Metoprolol Tartrate 5 mg VIAL 5 ml VIAL (1 mg/ml) IV SCH ×4 (05:36→23:27)
[2020-05-03] MEDS: Nystatin TOP POWDER 15 GM BTL TOPICAL SCH ×4 (08:06→21:46)
[2020-05-03] MEDS: Morphine 2 MG/ML SYRINGE IV PRN (10:38)
[2020-05-03] MEDS ORDERED: LORazepam 2 mg VIAL 1 ml IV PUSH ONE (11:22)
[2020-05-03] MEDS ORDERED: Lorazepam PYXIS KEY PRN (11:22)
[2020-05-03] MEDS ORDERED: Morphine 2 MG/ML SYRINGE IV PRN (11:27)
[2020-05-03 12:36] LABS: Hematocrit 25 % (35-47); Hemoglobin 8.3 g/dL (12.0-16.0); Mean Corpuscular HGB Conc 33 g/dL (31-36); Mean Corpuscular Hemoglobin 28 pg (27-31); Mean Corpuscular Volume 84 fL (80-97); Mean Platelet Volume 9.5 fL (7.4-10.4); Platelet Count 154 10^3/uL (150-450); Red Blood Count 2.97 10^6 /uL (3.70-4.87); Red Cell Distribution Width 14 % (10-15); White Blood Count 2.5 10^3/uL (3.5-10.8)
[2020-05-03 12:49] LABS: Albumin 2.2 g/dL (3.2-5.2); BUN/Creatinine Ratio 19.7 (8-20); Calcium 7.2 mg/dL (8.6-10.3); EGFR African American 98.5 (>60); EGFR Non-African American 81.4 (>60); Globulin 3.5 g/dL (2-4); Potassium 3.1 mmol/L (3.5-5.0); Total Protein 5.7 g/dL (6.4-8.9)
[2020-05-03 12:50] LABS: Albumin/Globulin Ratio 0.6 (1-3); Total Bilirubin 0.8 mg/dL (0.2-1.0)
[2020-05-03 16:13] LABS: ABS Lymphocytes 0.5 10^3/ul (1.0-4.8); ABS Monocytes 0.5 10^3/ul (0-0.8); ABS Neutrophils 1.4 10^3/ul (1.5-7.7); Eosinophil % 1.2 %; Lymphocyte % 21.8 %
[2020-05-03] MEDS: KCL 20 MEQ/100 ML IVPREMIX 20 MEQ/100 ML BAG IV SCH (21:51)
[2020-05-04] MEDS: KCL 20 MEQ/100 ML IVPREMIX 20 MEQ/100 ML BAG IV SCH (00:52)
[2020-05-04] MEDS: Metoprolol Tartrate 5 mg VIAL 5 ml VIAL (1 mg/ml) IV SCH ×4 (05:42→23:35)
[2020-05-04 05:58] LABS: Hematocrit 23 % (35-47); Hemoglobin 7.7 g/dL (12.0-16.0); Mean Corpuscular HGB Conc 33 g/dL (31-36); Mean Corpuscular Hemoglobin 28 pg (27-31); Mean Corpuscular Volume 84 fL (80-97); Platelet Count 200 10^3/uL (150-450); Red Blood Count 2.73 10^6 /uL (3.70-4.87); Red Cell Distribution Width 15 % (10-15); White Blood Count 2.6 10^3/uL (3.5-10.8)
[2020-05-04 06:16] LABS: Albumin 2.2 g/dL (3.2-5.2); Albumin/Globulin Ratio 0.6 (1-3); BUN/Creatinine Ratio 17.8 (8-20); Calcium 7.3 mg/dL (8.6-10.3); EGFR African American 95.4 (>60); EGFR Non-African American 78.8 (>60); Globulin 3.4 g/dL (2-4); Potassium 3.5 mmol/L (3.5-5.0); Total Bilirubin 0.7 mg/dL (0.2-1.0); Total Protein 5.6 g/dL (6.4-8.9)
[2020-05-04 07:00] LABS: ABS Lymphocytes 0.6 10^3/ul (1.0-4.8); ABS Monocytes 0.6 10^3/ul (0-0.8); ABS Neutrophils 1.3 10^3/ul (1.5-7.7); Eosinophil % 1.3 %; Lymphocyte % 24.3 %
[2020-05-04] MEDS: Nystatin TOP POWDER 15 GM BTL TOPICAL SCH ×3 (08:10→20:27)
[2020-05-04] MEDS: Potassium Chlor 20 meq TAB.ER PO SCH ×2 (15:05→20:44)
[2020-05-04] MEDS: Al Hydrox/Mg Hydrox/Simet LIQ 30 ML UDC PO PRN (18:32)
[2020-05-05] MEDS: Metoprolol Tartrate 5 mg VIAL 5 ml VIAL (1 mg/ml) IV SCH ×4 (05:12→23:12)
[2020-05-05 05:35] LABS: Hematocrit 24 % (35-47); Hemoglobin 8.1 g/dL (12.0-16.0); Mean Corpuscular HGB Conc 34 g/dL (31-36); Mean Corpuscular Hemoglobin 29 pg (27-31); Mean Corpuscular Volume 85 fL (80-97); Mean Platelet Volume 8.6 fL (7.4-10.4); Platelet Count 275 10^3/uL (150-450); Red Blood Count 2.81 10^6 /uL (3.70-4.87); Red Cell Distribution Width 14 % (10-15); White Blood Count 2.7 10^3/uL (3.5-10.8)
[2020-05-05 05:50] LABS: Albumin 2.3 g/dL (3.2-5.2); Albumin/Globulin Ratio 0.6 (1-3); BUN/Creatinine Ratio 16.9 (8-20); Calcium 7.5 mg/dL (8.6-10.3); EGFR African American 98.5 (>60); EGFR Non-African American 81.4 (>60); Potassium 3.5 mmol/L (3.5-5.0); Total Bilirubin 0.8 mg/dL (0.2-1.0); Total Protein 6.3 g/dL (6.4-8.9)
[2020-05-05 05:57] LABS: ABS Lymphocytes 0.7 10^3/ul (1.0-4.8); ABS Monocytes 0.6 10^3/ul (0-0.8); ABS Neutrophils 1.3 10^3/ul (1.5-7.7); Eosinophil % 1.3 %; Lymphocyte % 24.7 %; Nucleated Red Blood Cells % 0.1
[2020-05-05 06:07] LABS: Polychromasia 1+
[2020-05-05] MEDS: Nystatin TOP POWDER 15 GM BTL TOPICAL SCH ×3 (08:10→21:03)
[2020-05-05] MEDS: Potassium Chlor 20 meq TAB.ER PO SCH ×2 (08:15→21:07)
[2020-05-05] MEDS: Ondansetron 4 mg VIAL 2 MG/ML 2 ml VIAL IV PRN (09:35)
[2020-05-06] MEDS: Metoprolol Tartrate 5 mg VIAL 5 ml VIAL (1 mg/ml) IV SCH ×3 (05:02→17:33)
[2020-05-06] MEDS: Potassium Chlor 20 meq TAB.ER PO SCH ×2 (08:49→20:32)
[2020-05-06] MEDS: Nystatin TOP POWDER 15 GM BTL TOPICAL SCH ×3 (11:57→20:32)
[2020-05-07] MEDS: Metoprolol Tartrate 5 mg VIAL 5 ml VIAL (1 mg/ml) IV SCH ×5 (00:20→23:16)
[2020-05-07 06:06] LABS: Hematocrit 26 % (35-47); Hemoglobin 8.8 g/dL (12.0-16.0); Mean Corpuscular HGB Conc 34 g/dL (31-36); Mean Corpuscular Hemoglobin 29 pg (27-31); Mean Corpuscular Volume 87 fL (80-97); Platelet Count 341 10^3/uL (150-450); Red Blood Count 3.03 10^6 /uL (3.70-4.87); Red Cell Distribution Width 15 % (10-15); White Blood Count 4.7 10^3/uL (3.5-10.8)
[2020-05-07 06:17] LABS: ABS Lymphocytes 0.9 10^3/ul (1.0-4.8); ABS Monocytes 0.9 10^3/ul (0-0.8); ABS Neutrophils 2.8 10^3/ul (1.5-7.7); Eosinophil % 0.4 %; Lymphocyte % 19.1 %
[2020-05-07 06:26] LABS: BUN/Creatinine Ratio 14.3 (8-20); Calcium 8.1 mg/dL (8.6-10.3); EGFR African American 81.1 (>60); Magnesium 1.4 mg/dL (1.9-2.7); Potassium 3.9 mmol/L (3.5-5.0)
[2020-05-07] MEDS: Potassium Chlor 20 meq TAB.ER PO SCH ×2 (08:04→20:57)
[2020-05-07] MEDS: Ondansetron 4 mg VIAL 2 MG/ML 2 ml VIAL IV PRN (08:04)
[2020-05-07] MEDS: Al Hydrox/Mg Hydrox/Simet LIQ 30 ML UDC PO PRN ×2 (08:04→18:14)
[2020-05-07] MEDS: Nystatin TOP POWDER 15 GM BTL TOPICAL SCH ×3 (08:08→20:57)
[2020-05-07] MEDS ORDERED: Magnesium Sulf 4 GM/100 ML IV 4,000 MG/100 ML BAG IVPB ONE (09:16)
[2020-05-07] MEDS ORDERED: Magnesium CITRATE LIQ 300 ML BTL PO ONE (10:45)
[2020-05-07] MEDS: Senna TAB 8.6 mg TAB PO SCH ×2 (11:11→20:57)
[2020-05-07] MEDS ORDERED: Sodium Phosphate ADULT ENEMA 133 ML BTL PR ONE (17:18)
[2020-05-08 02:38] LABS: Urine Appearance Cloudy; Urine Bilirubin Negative (Negative); Urine Blood 3+ (Negative); Urine Color Yellow; Urine Glucose Negative (Negative); Urine Ketones Negative (Negative); Urine Nitrite Negative (Negative); Urine Protein Negative (Negative); Urine Specific Gravity 1.011 (1.010-1.030); Urine Urobilinogen Negative (Negative)
[2020-05-08 02:47] LABS: Urine Bacteria 1+ (Absent); Urine Red Blood Cell 3+(>10/hpf) (Absent); Urine Squamous Epithelial Cell Present (Absent); Urine White Blood Cell 3+(>20/hpf) (Absent)
[2020-05-08] MEDS: Metoprolol Tartrate 5 mg VIAL 5 ml VIAL (1 mg/ml) IV SCH ×2 (05:52→11:36)
[2020-05-08] MEDS: Senna TAB 8.6 mg TAB PO SCH (09:58)
[2020-05-08] MEDS: Potassium Chlor 20 meq TAB.ER PO SCH (10:02)
[2020-05-08] MEDS: Nystatin TOP POWDER 15 GM BTL TOPICAL SCH (10:05)
[2020-05-08 11:17] VITALS: BP 120/60
== END 2020-05-08 12:00 | DRG 808 ==
LOC: ED 12:40 → MED 17:18
PROVIDERS: ADMIT Internal Medicine; ATTEND Internal Medicine Hematology & Oncology